=== PATIENT | female | born 1980 | race Caucasian/White ===

== ENCOUNTER → 2021-05-23 13:53 | Outpatient (CLI) | payer BC, SELFPAY ==
--- NOTE | ~2021-05-23 | MM_ITS ---
EXAMINATION: MM screening my BI w aneesh HISTORY: Screening TECHNIQUE: Craniocaudal and mediolateral oblique 3-D tomosynthesis images were obtained and synthetic 2-D images were generated. CAD analysis was submitted and interpreted. COMPARISON: No prior mammogram is available for comparison at this institution. BREAST PARENCHYMAL COMPOSITION: The breasts are extremely dense, which lowers the sensitivity of mamm ography FINDINGS: There are subtle asymmetry centrally in the right breast, posterior third, on CC view only. There are no suspicious masses, calcifications or architectural distortion in the left breast to sug gest malignancy. IMPRESSION: 1. Localized right breast asymmetries on CC view. 2. Additional mammographic views and possible breast ultrasound are recommended. BI-RADS Category 0: Incomplete: Needs additional imaging evaluation. Reviewed, dictated and finalized at location A. MAKER HAND IMPRESSION: 1. Localized right breast asymmetries on CC view. 2. Additional mammographic views and possible breast ultrasound are recommended . BI-RADS Category 0: Incomplete: Needs additional imaging evaluation.
== END ==
PROVIDERS: Visit Provider Nurse Practitioner Obstetrics & Gynecology
DX: Z12.31 Encounter for screening mammogram for malignant neoplasm of breast (principal); R92.8 Other abnormal and inconclusive findings on diagnostic imaging of breast
CPT/HCPCS: 77063; 77067

== ENCOUNTER → 2021-06-28 09:52 | Outpatient (CLI) | payer BC, SELFPAY ==
--- NOTE | ~2021-06-28 | MMUS_ITS ---
EXAMINATION: MM diagnostic my RT w aneesh, US breast RT complete HISTORY: History of mastitis. Focal right breast asymmetry. TECHNIQUE: Additional 3-D tomosynthesis images of the right breast were performed and synthetic 2-D i mages were generated. CAD analysis was submitted and interpreted. High resolution complete right andie st ultrasound was performed. COMPARISON: 05/23/2021 BREAST PARENCHYMAL COMPOSITION: The breasts are extremely dense, which lowers the sensitivity of mamm ography FINDINGS: MAMMOGRAPHIC FINDINGS: There are no suspicious masses, calcifications or architectural distortion in the right breast to sug gest malignancy. ULTRASOUND: Complete US of all 4 quadrants of the right breast and retroareolar region was reviewed. There are mu ltiple simple and complicated cyst of the right breast. No suspicious masses to suggest malignancy. L argest cyst measures 7 mm at 12:00, 3 cm from the nipple. IMPRESSION: 1. No evidence for malignancy in the right breast. 2. Routine yearly screening mammogram and regular clinical breast examination are recommended. BI-RADS Category 2: Benign finding(s). Reviewed, dictated and finalized at location A. ER TENDER IMPRESSION: 1. No evidence for malignancy in the right breast. 2. Routine yearly screening mammogram and regular clinical breast examination a re recommended. BI-RADS Category 2: Benign finding(s).
== END ==
PROVIDERS: PCP Nurse Practitioner Family; Visit Provider Nurse Practitioner Obstetrics & Gynecology
DX: R92.8 Other abnormal and inconclusive findings on diagnostic imaging of breast (principal)
CPT/HCPCS: 76641; 77061; 77065; G0279

== ENCOUNTER 2025-04-06 08:33 | Outpatient (CLI) | payer BC, SELFPAY ==
--- OUTSIDE RECORDS SUMMARY | 2025-04-06 08:52 | XMS_ITS | Clinical Summary ---
Author Organization [facility] Address [address] [place] [address] Care Team Providers Care Band Tumbler Name Role Phone Darian Perez MD Primary Care Provider [phone] Muriel Avery INSTRUCTOR PILOT Unavailable [phone] Brigid Castañeda MD PhD Unavaila ble Allergies No known active allergies Medications No known medications Active Problems Problem Noted Date Diagnosed Date Extreme hearing loss, right 04/03/2023 Overview (04/03/2023): Present since 2018 - worsening issues with tightness of RT jaw/ear discomfort x 3 mo duration (01/2023 - present) Physical exam - dryness notes in RT ear canal, no TM changes, no muffled voice. Assessment & Plan (04/03/2023 10:41 AM AERONAUTICS TEACHER): Present since 2018 - worsening issues with tightness of RT jaw/ear discomfort x 3 mo duration (01/2023 - present) Physical exam - dryness notes in RT ear canal, no TM changes, no muffled voice. - gasateria attendant - debrox for wax build up - consider olive or coconut oil to soften dry canal Well adult exam 03/29/2022 Assessment & Plan (04/08/2024 10:44 AM AERONAUTICS TEACHER): A(n) yearly well adult visit has been performed today. Steffanie Messina is not up to date on screening tests. She is in need of Hepatitis B and Hepatitis C- screening. She is up to date on needed preventative vaccinations. We discussed healthy lifestyle habits, educational material has been given. Patient is currently not on any medications. Specific topics reviewed: drugs, ETOH, and tobacco, importance of regular dental care, importance of regular exercise, importance of varied diet, limit TV, media violence, minimize junk food, and seat belts. Return in 1 year Assessment & Plan (03/29/2022 10:18 AM AERONAUTICS TEACHER): A(n) yearly well adult visit has been performed today. Steffanie Messina is up to date on screening tests. She is in need of None- no screening indicated at this time- mammogram will be due next year. She is seeing breast specialist for 2nd opinion. She is up to date on needed preventative vaccinations; She is in need of Tdap/Td. Fatigue 06/07/2021 Assessment & Plan (06/07/2021 2:58 PM AERONAUTICS TEACHER): States has occasional fatigue. Note eats a plant based diet. Adequate fluid. Does do some supplements States gets adequate sleep. Will do lab today. Mixed hyperlipidemia 06/07/2021 Assessment & Plan (06/07/2021 9:41 PM AERONAUTICS TEACHER): Do lab work today. Talked about diet. Follows plant base diet. No animal products. Drinks adequate fluid Exercises every day. Talked about family history of cardiovascular health, IL's, cholesterol, hypertension, diabetes and cancer Reviewed diet, noting she eats very clean. Muscle cramping 06/07/2021 Assessment & Plan (06/07/2021 9:49 PM AERONAUTICS TEACHER): Lab today. With running does not have any problems with cramping States has had some fluttering in her heart. Does not last for a long time. No actual chest pain., shortness of breath or breaking out in sweats when this happens. Palpitations 09/17/2014 Chest pain 09/17/2014 Encounters Date Type Department Care Team Description 02/18/2025 Results Follow-Up [facility] Primary Care at [address] [address] Darian Perez MD Screening Mammogram Bilateral W Kyle 02/17/2025 10:12 AM CDT - 02/17/2025 11:59 PM CDT Hospital Encounter [facility] Breast Imaging [facility] ([facility]) [address] [place] [address] Other screening mammogram Discharge Disposition: Discharge to home or self care from Last 3 Months Immunizations Immunization Administration Dates Next Due Influenza, Quadrivalent, Spl it, Preservative Free, Intramuscular 03/19/2022,02/24/2021,02/03/2019,02/28 Influenza, Unspecified 02/11/2024 Tdap 04/27/2015 Surgical History Surgery Date Site/Laterality Comments SECTION Family History Medical History Relation Name Comments Cancer Brother Neuroblastoma Brother Diabetes Father Heart disease Father Family history of cardiac disorder - (Added by TW Conv) Heart disease Mother Family history of cardiac disorder - (Added by TW Conv) Hypertension Mother Relation Name Status Comments Brother Father Mother Social History Tobacco Use Types Packs/Day Years Used Date Smoking Tobacco: Never Tobacco Cessation:Counseling Given: Not Answered AUDIT-C Answer Date Recorded Q1: How often do you have a drink containing alc ohol? Monthly or less 04/03/2023 Q2: How many drinks containi ng alcohol do you have on a typical day when you are drinking? 1 or 2 04/03/2023 Q3: How often do you have si x or more drinks on one occasion? 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 Not on file Not on file 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 on file Not on file Not on file Obstetrics History Para Term AB IAB SAB Ectopic Multiple Livin g Live Births 2 2 Date Outcome GA Total Labor Labor/2nd/3rd Weight Sex Type Anes PTL Cris A1 A5 Name Clin Last Filed Vital Signs Vital Sign Reading Time Taken Comments Blood Pressure 100/60 04/08/2024 9:56 AM AERONAUTICS TEACHER Pulse 60 04/08/2024 9:56 AM AERONAUTICS TEACHER Temperature 36 C (96.8 F) 04/08/2024 9:56 AM AERONAUTICS TEACHER Respiratory Rate 16 04/08/2024 9:56 AM AERONAUTICS TEACHER Oxygen Saturation 99% 04/08/2024 9:56 AM AERONAUTICS TEACHER Inhaled Oxygen Concentration - - Weight 61.2 kg (135 lb) 02/17/2025 10:21 AM CDT Height 170.2 cm (5' 7) 02/17/2025 10:21 AM CDT Body Mass Index 21.14 02/17/2025 10:21 AM CDT Plan of Treatment Health Maintenance Due Date Last Done Comments HPV Vaccines (1 - 3-dose SCDM series) 2008 Covid-19 Vaccine ( season) 2025 04/26/2021, 08/10/2020, 07/13/2020 Depression Screening 04/08/2025 04/08/2024, 04/03/2023, 03/29/2022, Additional history exists Regular Well Visit/Exam 18-64 04/08/2025 04/08/2024, 04/03/2023, 03/29/2022 DTaP/Tdap/Td Vaccine (2 - Td or Tdap) 04/27/2025 04/27/2015 Cervical Cancer Screening 11/01/2025 11/01/2020 Breast Cancer Screening-Mammogram 02/17/2026 02/17/2025, 08/07/2024, 07/02/2023, Additional history exists Hepatitis B Screening Completed 04/08/2024 Hepatitis C Screening Completed 04/08/2024 Influenza Vaccine Completed 02/11/2025, , 01/25/2024, Additional history exists Pneumococcal vaccine <65 Aged Out No longer eligible based on patient's age to complete this topic Varicella Vaccines Discontinued Medical Devices Implanted Type Area Community Board Member Device Identifier Shelf Expiration Date Model / Serial / Lot [id number]-[id number] Uterus Procedures Procedure Name Priority Date/Time Associated Diagnosis Comments SCREENING MAMMOGRAM BILATERAL W KYLE Schedule Routine, Read Routine (OP Routine) 02/17/2025 10:26 AM CDT Other screening mammogram HEPATITIS C ANTIBODY Routine 04/08/2024 10:47 AM AERONAUTICS TEACHER Need for hepatitis C screening test HM PAP SMEAR WITH HPV Routine 11/01/2020 10:01 AM CDT from Last 3 Months or Most Recently Relevant to Health Maintenance Results * Screening Mammogram Bilateral W Kyle (02/17/2025 10:26 AM CDT) Anatomical Region Laterality Modality Breast Bilateral Mammography Impressions 02/18/2025 7:51 AM CDT Bilateral No evidence of malignancy in either breast. OVERALL BI-RADS FINAL ASSESSMENT: 1 - Negative RECOMMENDATION: Recommend bilateral annual screening mammography. Consider supplemental screening with breast MRI every 1-2 years given extremely dense breast tissue. If breast MRI cannot be performed, consider contrast-enhanced mammography as an alternative. Narrative 02/18/2025 7:51 AM CDT EXAMINATION: Screening Mammogram Bilateral W Kyle: 02/17/2025 COMPARISON: Relevant prior studies available at the time of interpretation were reviewed, including the most recent mammogram on: 08/01/2023. TECHNIQUE: Mammography was performed with 2D and 3D digital breast tomosynthesis (DBT) images. CAD was utilized. BREAST PARENCHYMAL COMPOSITION: The breasts are extremely dense, which lowers the sensitivity of mammography. FINDINGS: Bilateral There is no suspicious mass, calcification, or architectural distortion in either breast. Self Referral IMG MAMMO PROCEDURES Final Resul t * Hepatitis C antibody Blood (04/08/2024 10:47 AM AERONAUTICS TEACHER) Hep C Ab Nonreactive Nonreactive Comment: Interpretive Data Nonreactive: Antibodies to HCV not detected. Does NOT exclude the possibility of recent exposure to HCV. Equivocal: Equivocal for HCV antibodies. Supplemental molecular testing will be automatically performed to determine infection status in accordance with current CDC screening recommendations. Reactive: Positive for HCV antibodies. This may represent current or past HCV infection. Supplemental molecular testing will be automatically performed to determine current infection status in accordance with current CDC screening recommendations. Interpretive data was last revised on 2019. Blood 04/08/2024 10:4 7 AM AERONAUTICS TEACHER 04/08/2024 4:38 PM AERONAUTICS TEACHER Darian Perez MD LAB MICROBIOLOGY - GENERAL ORDERABLES Final Result Performing Organization Address City/State/[facility] Phone Number [place] [phone] [place] [address] * HM PAP SMEAR WITH HPV (11/01/2020 10:01 AM CDT) Historical Provider HEALTH MAINTENANCE Final Result from Last 3 Months or Most Recently Relevant to Health Maintenance Insurance [facility] Care Teams Band Tumbler Relationship Specialty Start Date End Date Darian Perez MD [address] [place] [address] PCP - General Family Medicine 03/29/22 Muriel Avery NP [address] [place] [address] Nurse Practitioner Obstetrics and Gynecology 03/29/22 Brigid Castañeda MD PhD [id number] [place] [address] Surgeon Surgical Oncology 03/29/22
--- OUTSIDE RECORDS SUMMARY | 2025-04-06 08:52 | XMS_ITS | Encounter Summary ---
Author Organization [facility] Address [address] [place] [address] Care Team Providers Care Commission Agent Livestock Name Role Phone Darian Perez MD Primary Care Provider [phone] Muriel Avery WOOLEN MILL UTILITY WORKER Unavailable [phone] Brigid Castañeda MD PhD Unavaila ble Reason for Referral * MRI/CAT/PET Scan (Routine) - Authorized Specialty Diagnoses / Procedures Referred By Carissa morales Referred To Contact Radiology Diagnoses Screening mammogram for breast cancer Extremely dense tissue of both breasts on mammography Procedures MRI BREAST WWO CONTRAST MRI BREAST WWO CONTRAST Darian Perez MD [address] [address] Phone: tel: fax: [address] [address] Referral ID Status Reason Start Date Expiration Date V isits Requested Visits Authorized [id number] Authorized 02/18/2025 03/20/2026 1 1 * Diagnostic Imaging (Routine) - Authorized Specialty Diagnoses / Procedures Referred By Carissa morales Referred To Contact Diagnoses Screening mammogram for breast cancer Procedures SCREENING MAMMOGRAM BILATERAL W KYLE Darian Perez MD [address] [facility] [address] [place] [address] Phone: tel: fax: [address] [address] Referral ID Status Reason Start Date Expiration Date V isits Requested Visits Authorized [id number] Authorized 02/18/2025 03/20/2026 1 1 Encounter Details Date Type Department Care Team (Late st Contact Info) Description 02/18/2025 Results Follow-Up [facility] Primary Care at [address] [id number] Darian Perez MD [address] [place] [address] [address] [place] [address] Screening Mammogram Bilateral W Kyle Social History Tobacco Use Types Packs/Day Years Used Date Smoking Tobacco: Never AUDIT-C Answer Date Recorded Q1: How often [...] on file Legal Sex Female 5:23 AM OCEAN LIFEGUARD SPECIALIST Gender Identity Not on file Sexual Orientation Not on file 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 Not on file Not on file 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 on file Not on file Not on file documented as of this encounter Plan of Treatment Scheduled Orders Name Type Priority Associated Diagnoses Orde r Schedule SCREENING MAMMOGRAM BILATERAL W KYLE Imaging Schedule Routine, Read Routine (OP Routine) Screening mammogram for breast cancer Expected: 02/18/2026 (Approximate), Expires: 08/19/2026 MRI BREAST WWO CONTRAST Imaging Schedule Routine, Read Routine (OP Routine) Screening mammogram for breast cancer Extremely dense tissue of both breasts on mammography Expected: 02/18/2026 (Approximate), Expires: 08/19/2026 documented as of this encounter Visit Diagnoses Diagnosis Screening mammogram for breast cancer- Primary Extremely dense tissue of both breasts on mammography documented in this encounter Care Teams Commission Agent Livestock Relationship Specialty Start Date End Date Darian Perez MD [address] [place] [address] PCP - General Family Medicine 03/29/22 Muriel Avery NP [address] [place] [address] Nurse Practitioner Obstetrics and Gynecology 03/29/22 Brigid Castañeda MD PhD [id number] [place] [address] Surgeon Surgical Oncology 03/29/22 documented as of this encounter
--- OUTSIDE RECORDS SUMMARY | 2025-04-06 08:52 | XMS_ITS | Clinical Summary ---
Author Organization [facility] Care Team Providers Care Copy Camera Operator Name Role Phone Unavailable Primary Care Provider Unavailabl e Social History Tobacco Use Types Packs/Day Years Used Date Smoking Tobacco: Never Assessed Comments Unknown Sex and Gender Information Value Date Recorded Sex Assigned at Not on file Legal Sex Female 2:03 PM TAIL DOGGER Gender Identity Not on file Sexual Orientation Not on file Plan of Treatment Health Maintenance Due Date Last Done Comments Hepatitis C Virus (HCV) Screening 1981 TdaP Immunization 1981 Hepatitis B Immunization (1 of 3 - 19+ 3-dose series) 2000 Pap Smear 2002 Human Papillomavirus (HPV) Immunization (1 - 3-dose SCDM series) 2008 Cervical Cancer Screening (CCS) 2011 HPV/Cotest 2011 Influenza Immunization (#1) 01/12/202501/13, 02/28/2018 SARS-COV-2 Immunization ( season) 2025 Respiratory Syncytial Virus (RSV) Immunization (Adult) (1 - 1-dose 75+ series) 2056 Meningococcal Immunization (ACWY) Aged Out No longer eligible b ased on patient's age to complete this topic Pneumococcal Immunization Combined Aged Out No longer eligible b ased on patient's age to complete this topic Rotavirus Immunization Aged Out No lo nger eligible based on patient's age to complete this topic
== END 2025-04-06 08:34 | disposition home or self-care (01) ==
LOC: ANHAUDASC 08:38
PROVIDERS: PCP Nurse Practitioner Family; Visit Provider Otolaryngology
DX: H90.42 Sensorineural hearing loss, unilateral, left ear, with unrestricted hearing on the contralateral side (principal); H90.71 Mixed conductive and sensorineural hearing loss, unilateral, right ear, with unrestricted hearing on the contralateral side
CPT/HCPCS: 92557; 92567